=== PATIENT | male | born 1995 | race Caucasian/White ===

== ENCOUNTER 2017-08-02 14:53 | Emergency (ER) | payer BC, OTHER ==
[2017-08-02] MEDS ORDERED: METHYLPREDNISOLONE INJ 125 MG/2 ML SDV IV ONE (15:06)
[2017-08-02] MEDS ORDERED: NORMAL SALINE 1000 ML 1,000 ML IV PRN (15:06)
[2017-08-02] MEDS ORDERED: DIPHENHYDRAMINE HCL 50 MG/ML VIAL IV ONE (15:06)
[2017-08-02] MEDS ORDERED: FAMOTIDINE INJ/PF 20 MG/2 ML SDV IV ONE (15:06)
--- NOTE | 2017-08-02 15:07 | ER Document Report ---
ED Medical Screen (RME) - General Chief Complaint: Allergic Reaction Stated Complaint: BITE BY FIRE ANTS Time Seen by Provider: 08/02/17 15:05 Mode of Arrival: Ambulatory Information source: Patient TRAVEL OUTSIDE OF THE [place] IN LAST 30 DAYS: No - HPI Patient complains to provider of: Allergic reaction to fire ant bite Notes: 08/02/17 15:06 Patient is a 22-year-old male presenting to the emergency room today complaining of diffuse urticarial rash with nasal swelling and difficulty swallowing secondary to being bitten by several fire ants around 130 this afternoon - Related Data Allergies/Adverse Reactions: amoxicillin Allergy (Verified 08/02/17 15:00) erythromycin base Allergy (Verified 08/02/17 15:00) sulfamethoxazole [From Bactrim] Allergy (Verified 08/02/17 15:00) trimethoprim [From Bactrim] Allergy (Verified 08/02/17 15:00) Past Medical History Renal/ Medical History: Denies: Hx Peritoneal Dialysis - Immunizations Immunizations up to date: No Hx Diphtheria, Pertussis, Tetanus Vaccination: Yes Physical Exam - Vital signs Vitals: Temp Pulse Resp BP Pulse Ox 98.6 F 63 18 135/59 H 99 08/02/17 14:53 08/02/17 14:53 08/02/17 14:53 08/02/17 14:53 08/02/17 14:53 Course - Vital Signs Vital signs: Temp Pulse Resp BP Pulse Ox 98.6 F 63 18 135/59 H 99 08/02/17 14:53 08/02/17 14:53 08/02/17 14:53 08/02/17 14:53 08/02/17 14:53
[2017-08-02] MEDS ORDERED: FAMOTIDINE 20 MG TABLET PO ONE (15:10)
[2017-08-02] MEDS ORDERED: EPINEPHRINE INJ/PF 1 MG/1 ML AMPULE SUBCUT ONE (15:10)
[2017-08-02] MEDS ORDERED: PREDNISONE 20 MG TABLET PO ONE (15:10)
--- NOTE | 2017-08-02 15:13 | ER Document Report ---
ED Allergic Reaction - General Mode of Arrival: Ambulatory Information source: Patient TRAVEL OUTSIDE OF THE [place] IN LAST 30 DAYS: No - HPI Onset: This afternoon Similar symptoms previously: No Recently seen / treated by doctor: No - General Chief Complaint: Allergic Reaction Stated Complaint: BITE BY FIRE ANTS Time Seen by Provider: 08/02/17 15:05 Notes: Patient is a 22 year old male presenting to the emergency department for an allergic reaction to fire ants. Patient got bit on his right hand around 12:30 and then bit on his left foot around 13:30 today. Patient states he took Benadryl x2 and 20 mg pepsid around 14:00. Patient complains of hives under his arms, itchiness, nasal swelling and difficulty swallowing. Patient states he does feel slightly better after taking the Benadryl and Pepsid. Patient denies any previous reaction to fire ant bites however he did have allergic reactions to bee stings in the past. (HAMILTON REYEZ) - Related Data Allergies/Adverse Reactions: amoxicillin Allergy (Verified 08/02/17 15:00) erythromycin base Allergy (Verified 08/02/17 15:00) sulfamethoxazole [From Bactrim] Allergy (Verified 08/02/17 15:00) trimethoprim [From Bactrim] Allergy (Verified 08/02/17 15:00) Past Medical History - General Information source: Patient - Social History Smoking Status: Never Smoker Cigarette use (# per day): No Chew tobacco use (# tins/day): No Smoking Education Provided: No Frequency of alcohol use: Social Drug Abuse: None Family History: None Patient has suicidal ideation: No Patient has homicidal ideation: No - Medical History Medical History: Negative Past Surgical History: Reports: Other - wisdom teeth - Immunizations Immunizations up to date: No Hx Diphtheria, Pertussis, Tetanus Vaccination: Yes Review of Systems - Review of Systems Constitutional: No symptoms reported EENT: See HPI, Difficulty swallowing Cardiovascular: No symptoms reported Respiratory: No symptoms reported Gastrointestinal: No symptoms reported Genitourinary: No symptoms reported Male Genitourinary: No symptoms reported Musculoskeletal: No symptoms reported Skin: See HPI, Other - diffuse urticaria and itchiness Hematologic/Lymphatic: No symptoms reported Neurological/Psychological: No symptoms reported -: Yes All other systems reviewed and negative Physical Exam - Vital signs Interpretation: Normal - Vital signs Vitals: Temp Pulse Resp BP Pulse Ox 98.6 F 63 18 135/59 H 99 08/02/17 14:53 08/02/17 14:53 08/02/17 14:53 08/02/17 14:53 08/02/17 14:53 - Notes Notes: GENERAL: Alert, interacts well. Mild distress. HEAD: Normocephalic, atraumatic. EYES: Appear normal. Pupils equal, round, and reactive to light. ENT: Moist mucus membranes, tongue midline. Oropharynx has some mild erythema but no edema, no sign of airway obstruction. NECK: Full range of motion. Supple. Trachea midline. LUNGS: Clear to auscultation bilaterally, no wheezes, rales, or rhonchi. No respiratory distress. HEART: Regular rate and rhythm. No murmurs, gallops, or rubs. ABDOMEN: Soft, non-tender. Non-distended. Normal bowel sounds. EXTREMITIES: Moves all 4 extremities spontaneously. Normal strength. No edema. NEUROLOGICAL: Alert and oriented x3. Normal speech. No focal neurological deficits. GCS 15. PSYCH: Normal affect, normal mood. SKIN: Warm, dry, normal turgor. Localized erythema to the right hand/thumb and to the left foot consistent with ant bites, these areas are also itchy. Diffuse urticaria to the axillary regions. (HAMILTON REYEZ) Course - Re-evaluation Re-evalutation: 08/02/17 16:17 Itching is gone. Patient states he feels much better. The hives are almost completely gone. (MACY RODGERS) - Vital Signs Vital signs: Temp Pulse Resp BP Pulse Ox 98.6 F 63 18 135/59 H 99 08/02/17 14:53 08/02/17 14:53 08/02/17 14:53 08/02/17 14:53 08/02/17 14:53 Discharge - Discharge Clinical Impression: Allergic reaction Qualifiers: Encounter type: initial encounter Qualified Code(s): T78.40XA - Allergy, unspecified, initial encounter Fire ant bite Qualifiers: Encounter type: initial encounter Injury intent: accidental or unintentional Qualified Code(s): T63.421A - Toxic effect of venom of ants, accidental ( unintentional), initial encounter Condition: Stable Disposition: HOME, SELF-CARE Additional Instructions: Insect Sting You've been stung by an insect. The venom can cause pain, redness, and swelling. Right after the sting, we sometimes use adrenaline to reduce the reaction to the venom. This also stops any allergic reaction. You should apply cold compresses, rest and elevate the affected part, and take antihistamines. A more severe, itchy red swelling sometimes develops the next day. This is a local allergic reaction to the venom. This local allergy isn't dangerous. We treat it with cortisone-type medicine and antihistamines. Sometimes we use antibiotics if we're worried about infection. If you develop a fever, chills, a red streak, or swollen glands in the area of the bite, infection may be starting. Return at once. Insect stings from the bee and hornet family may cause a severe allergic reaction. Symptoms include hoarseness, shortness of breath, general redness of the skin, general itching, or lightheadedness. If any of these symptoms occur, you'll be treated with adrenalin and cortisone-like steroids. You should carry an "Anaphylaxis Kit" with you in the summer months so you can administer these medications to yourself before getting emergency medical care. Acute Allergic Reaction Your symptoms are due to an allergic reaction. Allergy can cause hives, swelling of the hands, feet, and face, hoarseness, and difficulty swallowing or breathing. It may be due to exposure to medication, animal dander, foods, infection, or insect bites. Medication is a common cause, even when prior use of this same medication caused no problems. Acute treatment may include adrenalin and antihistamines. Usually, the specific allergic agent can't be identified unless repeated episodes occur. Home treatment includes the following: (1) Stop any suspicious medications. This will be discussed with you. (2) Oral antihistamines for the next four to five days. Example, diphenhydramine (Benadryl) every four hours. (3) You may also use cimetidine (Tagamet), ranitidine (Zantac), or famotidine (Pepcid) every four hours if diphenhydramine is not controlling itching and hives. (4) Avoid aspirin until the hives completely disappear. (5) Avoid hot bahs or showers until the hives are completely gone. Call the doctor if faintness, difficulty swallowing, tightness in the chest, or wheezing occurs. Prescriptions: Epinephrine [Epipen 2-Kuldip] 0.3 mg IM PRN PRN #1 ml PRN Reason: Scribe Attestation: 08/02/17 16:21 I personally performed the services described in the documentation, reviewed and edited the documentation which was dictated to the scribe in my presence, and it accurately records my words and actions. (MACY RODGERS) Scribe Documentation - Scribe Written by Tre:: Tre Balderas 08/02/2017 15:42 acting as scribe for :: Bharti
[2017-08-02 17:19] VITALS: BP 129/56
== END 2017-08-02 17:00 | disposition home or self-care (01) ==
LOC: ER 14:53
DX: T63.421A Toxic effect of venom of ants, accidental (unintentional), initial encounter (principal); T78.40XA Allergy, unspecified, initial encounter; W57.XXXA Bitten or stung by nonvenomous insect and other nonvenomous arthropods, initial encounter
CPT/HCPCS: 99283; 96372; J0171; J7512